=== PATIENT | male | born 1990 | race Caucasian/White ===

== ENCOUNTER 2023-11-19 08:10 | Emergency (ER) | payer SELFPAY ==
[~2023-11-19] VITALS: Ht 165.1 cm; Wt 75.3 kg
[2023-11-19 08:19] VITALS: BP 140/88; PULSE 77; RESP 16; TEMP 97.4; O2SAT 97
[2023-11-19 09:40] VITALS: BP 140/88; PULSE 77; RESP 16; TEMP 97.4; O2SAT 97
== END 2023-11-19 09:40 | disposition home or self-care (01) ==
LOC: MED 08:10
DX: S01.01XD Laceration without foreign body of scalp, subsequent encounter (principal); F17.200 Nicotine dependence, unspecified, uncomplicated; R03.0 Elevated blood-pressure reading, without diagnosis of hypertension; Z48.00 Encounter for change or removal of nonsurgical wound dressing; X58.XXXD Exposure to other specified factors, subsequent encounter
CPT/HCPCS: 99281

== ENCOUNTER 2023-11-22 10:44 | Emergency (ER) | payer SELFPAY ==
[~2023-11-22] VITALS: Ht 165.1 cm; Wt 72.6 kg
[2023-11-22 11:02] VITALS: BP 126/82; PULSE 69; RESP 18; TEMP 97.5; O2SAT 98
[2023-11-22 12:08] VITALS: BP 126/82; PULSE 69; RESP 18; TEMP 97.5; O2SAT 98
== END 2023-11-22 12:08 | disposition home or self-care (01) ==
LOC: MED 10:44
DX: S01.91XD Laceration without foreign body of unspecified part of head, subsequent encounter (principal); R42 Dizziness and giddiness; R51.9 Headache, unspecified; R03.0 Elevated blood-pressure reading, without diagnosis of hypertension; X58.XXXD Exposure to other specified factors, subsequent encounter
CPT/HCPCS: 99281